=== PATIENT | female | born 1990 | race Two or more races ===

== ENCOUNTER 2017-04-23 19:27 | Emergency (ER) | payer MEDICAID ==
[~2017-04-23] VITALS: Ht 165.1 cm; Wt 71.3 kg
[~2017-04-23 19:27] MED LIST: CYCL-1 PO; NORCO10T PO; PHEN-716 PO
[2017-04-23] MEDS ORDERED: PENI-88 PO (21:27)
[2017-04-23 21:38] VITALS: BP 130/53
== END 2017-04-23 21:40 | disposition home or self-care (01) ==
LOC: ER 19:27
DX: O99.513 Diseases of the respiratory system complicating pregnancy, third trimester (principal); J06.9 Acute upper respiratory infection, unspecified; Q89.01 Asplenia (congenital); Z3A.34 34 weeks gestation of pregnancy; Z90.49 Acquired absence of other specified parts of digestive tract; Z60.2 Problems related to living alone; Z88.5 Allergy status to narcotic agent; Z79.899 Other long term (current) drug therapy
CPT/HCPCS: 36415; 99283; 99284

== ENCOUNTER 2019-09-02 06:17 | Emergency (ER) | payer MEDICAID ==
[~2019-09-02] VITALS: Ht 165.1 cm; Wt 59.1 kg
[~2019-09-02 06:17] MED LIST changes: +HYDR-4383 PO; +IBUP-1985 PO
[2019-09-02] MEDS ORDERED: ondansetron/PF 4mg/2ml inj IV ONE (07:00)
[2019-09-02] MEDS ORDERED: fentaNYL/PF 50MCG/1 ML 2ML syringe IV ONE (07:00)
[2019-09-02] MEDS ORDERED: normal saline 1000ML IV soln IV ONE ×2 (07:00→11:45)
[2019-09-02 07:14] LABS: MEAN CORPUSCULAR VOLUME 105.2 FL (78-98)
[2019-09-02 07:19] LABS: HEMATOCRIT 37.4 % (35.0-45.0); MEAN CORPUSCULAR HEMOGLOBIN 36.5 PG (27.0-31.0); MEAN CORPUSCULAR HGB CONC 34.7 g/dL (33.0-36.5); MEAN PLATELET VOLUME 8.1 FL (7.4-10.4); PLATELET COUNT 788 X10'3 (140-440); RED BLOOD COUNT 3.55 X10'6 (4.20-5.60); RED CELL DISTRIBUTION WIDTH 14.6 % (11.5-14.5)
[2019-09-02 07:22] LABS: WHITE BLOOD COUNT 50.7 X10'3 (4.5-11.0)
[2019-09-02 07:25] LABS: PARTIAL THROMBOPLASTIN TIME 33 SECONDS (22-32)
[2019-09-02] MEDS ORDERED: proCHLORperazine 10 MG/2 ml inj IM ONE (07:25)
--- NOTE | 2019-09-02 07:28 | NUR ---
picc nurse aware of IV access needed. Dr roberts asked for PICC to be placed.
[2019-09-02 07:38] LABS: ALBUMIN 2.8 G/DL (3.4-5.0); ALKALINE PHOSPHATASE 208 IU/L (46-116); ANION GAP 36 (8-16); BILIRUBIN,TOTAL 5.9 MG/DL (0.1-1.0); BLOOD UREA NITROGEN 30 MG/DL (7-18); BUN/CREATININE RATIO 6.4 (6.6-38.0); CALCIUM 6.8 MG/DL (8.5-10.1); CHLORIDE 95 MMOL/L (99-107); CREATININE 4.68 MG/DL (0.40-0.90); SODIUM 143 MMOL/L (135-145); eGFR 11 ML/MIN
[2019-09-02 07:40] LABS: GLUCOSE 28 MG/DL (70-104)
[2019-09-02] MEDS ORDERED: dextrose 50%-water 50ml dispensing syringe IV ONE (07:45)
[2019-09-02] MEDS ORDERED: methylPREDNISolone sod succ 125mg/2ml vial IV ONE (07:50)
[2019-09-02 07:52] LABS: RETICULOCYTE % (AUTO) 2.8 % (0.5-1.5)
[2019-09-02 07:53] LABS: ABSOLUTE RETICS # 100100 /CUMM (23000-93000)
[2019-09-02 07:56] LABS: PLATELET ESTIMATE INCREASED; TOTAL CELLS COUNTED 100
[2019-09-02 07:57] LABS: LARGE PLATELETS FEW
[2019-09-02 07:58] LABS: ALANINE AMINOTRANSFERASE 1287 U/L (12-78); ALBUMIN/GLOBULIN RATIO 0.7 (1.1-1.5); TOTAL PROTEIN 6.8 G/DL (6.4-8.2)
[2019-09-02 08:03] LABS: POTASSIUM 2.4 MMOL/L (3.5-5.1); TOTAL CARBON DIOXIDE 12.1 MMOL/L (24-32)
--- NOTE | 2019-09-02 08:08 | NUR ---
notified dr roberts of pt condition. ordered to set up for a central line placement.
--- NOTE | 2019-09-02 08:10 | NUR ---
dr roberts at bedside to eval pt. pt refuses fentanyl at this time and due to pt condition and allergies dr perry stated we are limited to wha types of pain meds we can give. pt asked for dilaudid. dr roberts stated no dilaudid for pain conrtol.
[2019-09-02 08:33] LABS: ASPARTATE AMINO TRANSFERASE 2744 U/L (10-37)
[2019-09-02 08:34] LABS: URINE HCG NEGATIVE (NEG)
--- NOTE | 2019-09-02 08:41 | NUR ---
Dr Perez ok to give juice to pt. hold central line for now since we have 2 working PIV at this time.
[2019-09-02 08:47] LABS: UA COLLECTION TYPE STRAIGHT CATH
[2019-09-02 08:48] LABS: BACTERIA,URINE 4+ /HPF (Neg); RBC,URINE 20-50 /HPF (0-2); SQUAMOUS EPITHELIAL CELL,UR FEW /LPF (FEW); WBC,URINE TNTC /HPF (0-4)
[2019-09-02 08:49] LABS: TRANSITIONAL EPI CELLS,URINE FEW /HPF
[2019-09-02 08:50] LABS: WBC CLUMPS,URINE FEW /HPF (NEGATIVE)
[2019-09-02 09:04] LABS: AMYLASE 59 U/L (25-115); CREATINE KINASE 139 U/L (26-192); LIPASE 185 U/L (73-393); MAGNESIUM 1.5 MG/DL (1.5-2.4)
[2019-09-02] MEDS ORDERED: piperacillin/tazo 3.375gm/50ml 50 ML IV ONE (09:15)
[2019-09-02 09:19] LABS: LACTATE DEHYDROGENASE 2545 U/L (81-234)
[2019-09-02] MEDS ORDERED: pantoprazole IV 80 MG in normal saline 100ml IV soln 100 ML IV ONE ×4 (10:20)
[2019-09-02] MEDS ORDERED: vancomycin/NS 1 GM ADD-VANTAGE 250 ML IV ONE (10:20)
--- NOTE | 2019-09-02 10:27 | NUR ---
spoke with dr roberts regarding pt bp. ordered additional 1L ns.
[2019-09-02] MEDS ORDERED: normal saline 1000ml 1,000 ML IV ONE ×2 (10:30→11:35)
[2019-09-02] MEDS ORDERED: pantoprazole 40MG/NS 100ML BAG 100 ML IV SCH (10:30)
[2019-09-02] MEDS ORDERED: pantoprazole 40MG/NS 100ML BAG 100 ML IV ONE (10:30)
--- NOTE | 2019-09-02 11:16 | NUR ---
[facility] g[facility] [place] [phone] ok to give information per pt.
[2019-09-02 11:17] LABS: ETHANOL < 0.010 GM/DL (0.0-0.010)
[2019-09-02 11:24] LABS: URINE AMPHETAMINE SCREEN POSITIVE (Neg); URINE BARBITUATE SCREEN NEGATIVE (Neg); URINE BENZODIAZEPINES SCREEN NEGATIVE (Neg); URINE CANNABINOID SCREEN NEGATIVE (Neg); URINE COCAINE SCREEN POSITIVE (Neg); URINE METHADONE SCREEN NEGATIVE (Neg); URINE OPIATE SCREEN POSITIVE (Neg); URINE PHENCYCLIDINE SCREEN NEGATIVE (Neg)
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
--- NOTE | 2019-09-02 11:53 | NUR ---
dr roberts at bedside to place central line
[2019-09-02] MEDS ORDERED: hydrocortisone sod succ/PF 100mg/2ml inj. IV SCH (12:15)
[2019-09-02] MEDS ORDERED: potassium Cl 10 mEq/100mL bag IV ONE (13:05)
[2019-09-02] MEDS ORDERED: sodium bicarbonate (8.4%) inj. 150 MEQ in dextrose 5%-water 1,000 ML IV SCH (14:20)
--- NOTE | 2019-09-02 14:22 | NUR ---
ATTEMPTED TO CALL REPORT, SPOKE WITH ZAYRA COORDINATOR [facility]. STATED NO NURSE AVAILABLE UNTIL 1500. WILL CALL REPORT THEN.
[2019-09-02 14:43] VITALS: BP 93/51
[2019-09-02 14:52] LABS: ANION GAP 27 (8-16); BLOOD UREA NITROGEN 28 MG/DL (7-18); BUN/CREATININE RATIO 6.6 (6.6-38.0); CHLORIDE 103 MMOL/L (99-107); CREATININE 4.27 MG/DL (0.40-0.90); GLUCOSE 92 MG/DL (70-104); POTASSIUM 3.5 MMOL/L (3.5-5.1); SODIUM 142 MMOL/L (135-145); eGFR 13 ML/MIN
[2019-09-02 14:55] LABS: CALCIUM 5.5 MG/DL (8.5-10.1); TOTAL CARBON DIOXIDE 11.9 MMOL/L (24-32)
--- NOTE | 2019-09-06 08:40 | NUR ---
called [facility] in [facility], spoke to Estelita HERNADEZ. informed her that the pt. was positive for chlamydia and negative for gonorrhea
== END 2019-09-02 15:28 | disposition short-term general hospital (02) ==
LOC: ER 06:18
DX: N17.9 Acute kidney failure, unspecified (principal); K72.00 Acute and subacute hepatic failure without coma; I95.9 Hypotension, unspecified; R11.2 Nausea with vomiting, unspecified; R06.02 Shortness of breath; R10.12 Left upper quadrant pain; Z87.440 Personal history of urinary (tract) infections; Z90.49 Acquired absence of other specified parts of digestive tract; Z98.890 Other specified postprocedural states; Z88.5 Allergy status to narcotic agent; Z79.899 Other long term (current) drug therapy
CPT/HCPCS: 36415; 36556; 71045; 74176; 76700; 76937; 80048; 80053; 80305; 80320; 81001; 81025; 82150; 82550; 82800; 82948; 83605; 83615; 83690; 83735; 83874; 84145; 84484; 85025; 85045; 85610; 85730; 87040; 87077; 87186; 87491; 87591; 93005; 96361; 96365; 96366; 96367; 96372; 96375; 99291; 99292; C9113; J0780; J1720; J2405; J2543; J2930; J3370; J3480; J7030

== ENCOUNTER 2019-09-15 14:16 | Emergency (ER) | payer MEDICAID ==
[~2019-09-15] VITALS: Ht 165.1 cm; Wt 56.8 kg
[2019-09-15 14:57] LABS: BASOPHILS # (AUTO) 0.1 X10'3 (0-0.2); EOSINOPHILS % (AUTO) 0.2 % (0-6); MONOCYTES # (AUTO) 1.6 X10'3 (0-0.9); WHITE BLOOD COUNT 15.8 X10'3 (4.5-11.0)
[2019-09-15 14:59] LABS: BASOPHILS % (AUTO) 0.6 % (0-1); HEMATOCRIT 31.3 % (35.0-45.0); HEMOGLOBIN 10.1 g/dl (12.0-16.0); LYMPHOCYTES # (AUTO) 2.1 X10'3 (1.1-4.8); LYMPHOCYTES % (AUTO) 13.5 % (21-51); MEAN CORPUSCULAR HEMOGLOBIN 35.4 PG (27.0-31.0); MEAN CORPUSCULAR HGB CONC 32.4 g/dL (33.0-36.5); MEAN CORPUSCULAR VOLUME 109.4 FL (78-98); MEAN PLATELET VOLUME 9.1 FL (7.4-10.4); MONOCYTES % (AUTO) 9.9 % (2-12); NEUTROPHILS % (AUTO) 75.8 % (42-75); PLATELET COUNT 789 X10'3 (140-440); RED BLOOD COUNT 2.86 X10'6 (4.20-5.60); RED CELL DISTRIBUTION WIDTH 14.7 % (11.5-14.5)
[2019-09-15 15:11] LABS: ALANINE AMINOTRANSFERASE 110 U/L (12-78); ALBUMIN 3.2 G/DL (3.4-5.0); ALKALINE PHOSPHATASE 325 IU/L (46-116); ANION GAP 13 (8-16); ASPARTATE AMINO TRANSFERASE 102 U/L (10-37); BILIRUBIN,TOTAL 5.1 MG/DL (0.1-1.0); BLOOD UREA NITROGEN 11 MG/DL (7-18); BUN/CREATININE RATIO 7.4 (6.6-38.0); CHLORIDE 102 MMOL/L (99-107); CREATININE 1.48 MG/DL (0.40-0.90); GLUCOSE 118 MG/DL (70-104); LIPASE 356 U/L (73-393); POTASSIUM 5.3 MMOL/L (3.5-5.1); SODIUM 136 MMOL/L (135-145); eGFR 43 ML/MIN
[2019-09-15 15:13] LABS: ALBUMIN/GLOBULIN RATIO 0.6 (1.1-1.5); TOTAL PROTEIN 8.8 G/DL (6.4-8.2)
[2019-09-15 15:47] LABS: LARGE PLATELETS MODERATE; PLATELET ESTIMATE INCREASED
[2019-09-15] MEDS ORDERED: ondansetron/PF 4mg/2ml inj IV ONE (16:05)
[2019-09-15] MEDS ORDERED: normal saline 1000ML IV soln IV ONE (16:05)
--- NOTE | 2019-09-15 17:29 | NUR ---
unable to start iv on pt tried twice ,notified rn linus start iv ,tried 4 time unsuccessful.provider jelly aware ,new orders not to start iv and will order oral zofran.
[2019-09-15] MEDS ORDERED: ONDA4TAB6 PO (17:36)
[2019-09-15] MEDS ORDERED: ondansetron 4mg rapidly disintigrating tab PO ONE (17:40)
[2019-09-15 18:19] VITALS: BP 111/73
== END 2019-09-15 18:23 | disposition home or self-care (01) ==
LOC: ER 14:17
DX: E87.5 Hyperkalemia (principal); K29.70 Gastritis, unspecified, without bleeding; Z90.49 Acquired absence of other specified parts of digestive tract; Z98.890 Other specified postprocedural states; Z88.5 Allergy status to narcotic agent; Z79.899 Other long term (current) drug therapy
CPT/HCPCS: 36415; 80053; 83605; 83690; 84145; 85025; 93005; 99284

== ENCOUNTER 2020-07-10 02:26 | Emergency (ER) | payer MEDICAID ==
[~2020-07-10 02:26] MED LIST changes: +ONDA4TAB6 PO
== END 2020-07-10 04:56 | disposition left against medical advice (07) ==
LOC: ER 02:26
DX: Z00.00 Encounter for general adult medical examination without abnormal findings (principal); Z53.21 Procedure and treatment not carried out due to patient leaving prior to being seen by health care provider

== ENCOUNTER 2021-02-07 21:48 | Emergency (ER) | payer MEDICAID ==
[~2021-02-07] VITALS: Ht 167.6 cm; Wt 61.4 kg
[2021-02-07] MEDS ORDERED: NO HOME MEDS (22:56)
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
[2021-02-07] MEDS ORDERED: diazepam inj 5 MG/ML inj. IM ONE (23:35)
[2021-02-07] MEDS ORDERED: ibuprofen tablet 400 MG TABLET PO ONE (23:35)
[2021-02-07 23:40] LABS: ALANINE AMINOTRANSFERASE 90 U/L (12-78); ALBUMIN 4.1 G/DL (3.4-5.0); ALKALINE PHOSPHATASE 95 IU/L (46-116); ANION GAP 17 (8-16); ASPARTATE AMINO TRANSFERASE 115 U/L (10-37); BILIRUBIN,TOTAL 1.4 MG/DL (0.1-1.0); BLOOD UREA NITROGEN 12 MG/DL (7-18); BUN/CREATININE RATIO 15.4 (6.6-38.0); CALCIUM 8.6 MG/DL (8.5-10.1); CHLORIDE 107 MMOL/L (99-107); CREATININE 0.78 MG/DL (0.40-0.90); GLUCOSE 93 MG/DL (70-104); POTASSIUM 3.1 MMOL/L (3.5-5.1); SODIUM 147 MMOL/L (135-145); TOTAL CARBON DIOXIDE 23.2 MMOL/L (24-32); TOTAL PROTEIN 8.3 G/DL (6.4-8.2); eGFR 88 ML/MIN
[2021-02-07] MEDS ORDERED: MIDAZolam 5mg/ml 2ml vial IM ONE (23:40)
[2021-02-07 23:49] LABS: ETHANOL 0.193 GM/DL (0.0-0.010)
--- NOTE | 2021-02-07 23:50 | NUR ---
security called to get blood and change patient into gown. grisel outside of door. patient left room after secutiry left and tried to leave, security escorted her back to her room. Versed was ordered and patient gladly let me give it to her. Asked patient if she could provide urine sample she refused, will keep trying. patient is now resting in her bed with blanket over her head.
[2021-02-08 02:07] LABS: BASOPHILS # (AUTO) 0.1 X10'3 (0-0.2); BASOPHILS % (AUTO) 0.8 % (0-1); EOSINOPHILS # (AUTO) 0.1 X10'3 (0-0.9); EOSINOPHILS % (AUTO) 0.6 % (0-6); LYMPHOCYTES # (AUTO) 1.7 X10'3 (1.1-4.8); LYMPHOCYTES % (AUTO) 15.1 % (21-51); MONOCYTES # (AUTO) 1.4 X10'3 (0-0.9); MONOCYTES % (AUTO) 12.4 % (2-12); NEUTROPHILS # (AUTO) 7.8 X10'3 (1.8-7.7); NEUTROPHILS % (AUTO) 71.1 % (42-75)
[2021-02-08 03:15] LABS: HEMATOCRIT 33.4 % (35.0-45.0); HEMOGLOBIN 12.3 g/dl (12.0-16.0); MEAN CORPUSCULAR HEMOGLOBIN 36.1 PG (27.0-31.0)
[2021-02-08 03:16] LABS: MEAN CORPUSCULAR HGB CONC 36.9 g/dL (33.0-36.5); MEAN PLATELET VOLUME 8.6 FL (7.4-10.4); PLATELET COUNT 446 X10'3 (140-440); RED CELL DISTRIBUTION WIDTH 13.9 % (11.5-14.5)
[2021-02-08 04:18] LABS: NUCLEATED RED BLOOD CELLS 1 /100WBC (0-0); TOTAL CELLS COUNTED 100
[2021-02-08 04:19] LABS: BURR CELLS FEW; PLATELET ESTIMATE NORMAL; SPHEROCYTES FEW
--- NOTE | 2021-02-08 05:16 | NUR ---
patient let me covid swab her but refused vitals ( stated that we didnt need to know).
[2021-02-08] MEDS ORDERED: potassium Cl 20 mEq SR tablet PO STA (05:21)
[2021-02-08] MEDS ORDERED: MIDAZolam 5mg/ml 2ml vial IM ONE (05:35)
[2021-02-08 05:58] LABS: URINE HCG NEGATIVE (NEG)
[2021-02-08 06:04] LABS: URINE AMPHETAMINE SCREEN NEGATIVE (Neg); URINE BARBITUATE SCREEN NEGATIVE (Neg); URINE BENZODIAZEPINES SCREEN POSITIVE (Neg); URINE CANNABINOID SCREEN NEGATIVE (Neg); URINE COCAINE SCREEN POSITIVE (Neg); URINE METHADONE SCREEN NEGATIVE (Neg); URINE OPIATE SCREEN NEGATIVE (Neg); URINE PHENCYCLIDINE SCREEN NEGATIVE (Neg)
--- NOTE | 2021-02-08 09:00 | NUR ---
Pt ate breakfast and did not have AM meds. She was pleasant, answered questions appropriately and requested water and returned to sleep.
[2021-02-08] MEDS ORDERED: acetaminophen 325mg tablet PO ONE (11:30)
--- NOTE | 2021-02-08 12:13 | NUR ---
Received Pt from main ER to [facility]. Pt went into bed 25 and fell asleep.
--- NOTE | 2021-02-08 13:30 | NUR ---
Pt c/o leg pain and was given Tylenol after getting order from .
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
[2021-02-08] MEDS ORDERED: acetaminophen 325mg tablet PO PRN (16:30)
[2021-02-08] MEDS: diphenhydrAMINE 25mg capsule PO PRN ×2 (16:48→20:44)
[2021-02-08] MEDS: ibuprofen tablet 400 MG TABLET PO PRN ×2 (16:48→20:44)
--- NOTE | 2021-02-08 17:15 | NUR ---
Pt makes many requests for snacks, phone pillows. Pt given motrin or pain and benadryl for anxiety per md.
--- NOTE | 2021-02-08 19:00 | NUR ---
One to one with the patient is alert, oriented and cooperative with the evening assessment. She denies auditory or visual hallucinations at this time but stated she did have them yesterday. She denies being sucidal. She denies drug use. She denies etoh withdrawals. She denies thoughts to harm others. She has not had any agitated or threatening behaviors.
--- NOTE | 2021-02-08 20:18 | NUR ---
Nurse to nurse with Christa HERNADEZ at [facility], [place].
--- NOTE | 2021-02-08 22:21 | NUR ---
The patient had difficulty falling asleep. She has very poor coping skills. She is medication focused.
[2021-02-08] MEDS ORDERED: LORazepam 1 MG tablet PO ONE (23:05)
--- NOTE | 2021-02-09 00:53 | NUR ---
The patient appears to be sleeping
--- NOTE | 2021-02-09 01:54 | NUR ---
The patient appears to be sleeping
--- NOTE | 2021-02-09 03:55 | NUR ---
The patient is awake and resting on her bed
--- NOTE | 2021-02-09 05:27 | NUR ---
The patient appears to be sleeping currently
[2021-02-09 05:53] VITALS: BP 138/97
--- NOTE | 2021-02-09 07:00 | NUR ---
Pt received asleep in bed without complaints.
[2021-02-09] MEDS: diphenhydrAMINE 25mg capsule PO PRN (08:14)
== END 2021-02-09 10:38 ==
LOC: ER 21:48
DX: F10.929 Alcohol use, unspecified with intoxication, unspecified (principal); R74.01 Elevation of levels of liver transaminase levels; Z20.822 Contact with and (suspected) exposure to COVID-19
CPT/HCPCS: 36415; 80053; 80305; 80320; 81025; 84443; 85007; 85025; 85610; 87635; 96372; 99285; C9803; J2250; Q0163

== ENCOUNTER 2021-06-13 22:48 | Emergency (ER) | payer MEDICAID ==
[~2021-06-13] VITALS: Ht 165.1 cm; Wt 63.6 kg
[~2021-06-13 22:48] MED LIST changes: -CYCL-1 PO; -HYDR-4383 PO; -IBUP-1985 PO; +NO HOME MEDS; -NORCO10T PO; -ONDA4TAB6 PO; -PHEN-716 PO
[2021-06-13 22:56] VITALS: BP 131/91
[2021-06-13 23:27] LABS: CLARITY,URINE CLEAR (Clear); COLOR,URINE YELLOW (Yellow); GLUCOSE, URINE NEGATIVE (Neg); KETONES,URINE NEGATIVE (Neg); LEUKOCYTE ESTERASE ,URINE NEGATIVE (Neg); NITRITES, URINE NEGATIVE (Neg); OCCULT BLOOD,URINE NEGATIVE (Neg); PH,URINE 6.5 (4.8-8.0); PROTEIN,URINE NEGATIVE (Neg); UROBILINOGEN,URINE 0.2 E.U/dL (0.2-1.0)
[2021-06-13 23:28] LABS: BASOPHILS # (AUTO) 0.1 X10'3 (0-0.2); BASOPHILS % (AUTO) 0.7 % (0-1); EOSINOPHILS # (AUTO) 0.2 X10'3 (0-0.9); EOSINOPHILS % (AUTO) 1.8 % (0-6); HEMATOCRIT 34.8 % (35.0-45.0); HEMOGLOBIN 12.6 g/dl (12.0-16.0); LYMPHOCYTES # (AUTO) 2.4 X10'3 (1.1-4.8); LYMPHOCYTES % (AUTO) 22.9 % (21-51); MEAN CORPUSCULAR HEMOGLOBIN 34.8 PG (27.0-31.0); MEAN CORPUSCULAR VOLUME 96.6 FL (78-98); MEAN PLATELET VOLUME 7.2 FL (7.4-10.4); MONOCYTES # (AUTO) 1.3 X10'3 (0-0.9); MONOCYTES % (AUTO) 11.7 % (2-12); NEUTROPHILS # (AUTO) 6.7 X10'3 (1.8-7.7); NEUTROPHILS % (AUTO) 62.9 % (42-75); PLATELET COUNT 586 X10'3 (140-440); RED BLOOD COUNT 3.61 X10'6 (4.20-5.60); RED CELL DISTRIBUTION WIDTH 14.3 % (11.5-14.5); WHITE BLOOD COUNT 10.7 X10'3 (4.5-11.0)
[2021-06-13 23:28] LABS: URINE HCG NEGATIVE (NEG)
[2021-06-13 23:31] LABS: UA COLLECTION TYPE NON-SPECIFIED
[2021-06-13 23:43] LABS: ALANINE AMINOTRANSFERASE 19 U/L (12-78); ALBUMIN 3.3 G/DL (3.4-5.0); ALBUMIN/GLOBULIN RATIO 0.8 (1.1-1.5); ALKALINE PHOSPHATASE 74 IU/L (46-116); ANION GAP 13 (8-16); ASPARTATE AMINO TRANSFERASE 15 U/L (10-37); BILIRUBIN,TOTAL 0.4 MG/DL (0.1-1.0); BLOOD UREA NITROGEN 15 MG/DL (7-18); BUN/CREATININE RATIO 23.4 (6.6-38.0); CALCIUM 8.4 MG/DL (8.5-10.1); CHLORIDE 105 MMOL/L (99-107); CREATININE 0.64 MG/DL (0.40-0.90); GLUCOSE 95 MG/DL (70-104); LIPASE 81 U/L (73-393); POTASSIUM 3.4 MMOL/L (3.5-5.1); SODIUM 143 MMOL/L (135-145); TOTAL CARBON DIOXIDE 25.1 MMOL/L (24-32); TOTAL PROTEIN 7.5 G/DL (6.4-8.2); eGFR > 90 ML/MIN
[2021-06-14 01:24] LABS: PLATELET ESTIMATE INCREASED; SPHEROCYTES FEW
[2021-06-14 01:25] LABS: BURR CELLS FEW; LARGE PLATELETS FEW
== END 2021-06-14 00:06 | disposition left against medical advice (07) ==
LOC: ER 22:49
DX: R10.9 Unspecified abdominal pain (principal); Z53.21 Procedure and treatment not carried out due to patient leaving prior to being seen by health care provider
CPT/HCPCS: 36415; 80053; 81003; 81025; 83690; 85008; 85025

== ENCOUNTER 2021-07-27 01:30 | Emergency (ER) | payer MEDICAID ==
[~2021-07-27] VITALS: Ht 170.2 cm; Wt 63.6 kg
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
--- NOTE | 2021-07-27 01:52 | NUR ---
PT to CT
--- NOTE | 2021-07-27 01:59 | NUR ---
Pt back from CT. Xray at bedside.
[2021-07-27] MEDS ORDERED: morphine 4 MG/ML inj SYRINge IV ONE ×2 (02:05→06:15)
[2021-07-27] MEDS ORDERED: ondansetron/PF 4mg/2ml inj IV ONE ×2 (02:05→06:15)
[2021-07-27 02:12] LABS: ALANINE AMINOTRANSFERASE 26 U/L (12-78); ALBUMIN 3.6 G/DL (3.4-5.0); ALBUMIN/GLOBULIN RATIO 0.9 (1.1-1.5); ALKALINE PHOSPHATASE 91 IU/L (46-116); ANION GAP 13 (8-16); ASPARTATE AMINO TRANSFERASE 27 U/L (10-37); BILIRUBIN,TOTAL 0.4 MG/DL (0.1-1.0); BLOOD UREA NITROGEN 13 MG/DL (7-18); BUN/CREATININE RATIO 12.9 (6.6-38.0); CALCIUM 8.2 MG/DL (8.5-10.1); CHLORIDE 109 MMOL/L (99-107); CREATININE 1.01 MG/DL (0.40-0.90); GLUCOSE 90 MG/DL (70-104); SODIUM 145 MMOL/L (135-145); TOTAL PROTEIN 7.6 G/DL (6.4-8.2); eGFR 65 ML/MIN
[2021-07-27 02:13] LABS: POTASSIUM 2.4 MMOL/L (3.5-5.1)
--- NOTE | 2021-07-27 02:15 | NUR ---
Critical potassium of 2.4 reported to Ji ELIZONDO
[2021-07-27 02:30] LABS: HCG SERUM QL NEGATIVE
[2021-07-27] MEDS ORDERED: potassium Cl 20 mEq SR tablet PO STA ×2 (02:34→07:04)
[2021-07-27] MEDS ORDERED: potassium chloride 10mEq ER tablet PO SCH (02:35)
--- NOTE | 2021-07-27 03:00 | NUR ---
FLORA (BROTHER) [phone] PLEASE CALL TO PICK PT UP WHEN READY
[2021-07-27 03:11] LABS: BASOPHILS # (AUTO) 0.1 X10'3 (0-0.2); BASOPHILS % (AUTO) 1.1 % (0-1); EOSINOPHILS # (AUTO) 0.5 X10'3 (0-0.9); EOSINOPHILS % (AUTO) 4.1 % (0-6); HEMATOCRIT 37.6 % (35.0-45.0); HEMOGLOBIN 13.4 g/dl (12.0-16.0); LYMPHOCYTES # (AUTO) 3.3 X10'3 (1.1-4.8); LYMPHOCYTES % (AUTO) 25.9 % (21-51); MEAN CORPUSCULAR HEMOGLOBIN 35.1 PG (27.0-31.0); MEAN CORPUSCULAR HGB CONC 35.7 g/dL (33.0-36.5); MEAN CORPUSCULAR VOLUME 98.3 FL (78-98); MEAN PLATELET VOLUME 7.8 FL (7.4-10.4); MONOCYTES # (AUTO) 1.3 X10'3 (0-0.9); MONOCYTES % (AUTO) 9.9 % (2-12); NEUTROPHILS # (AUTO) 7.5 X10'3 (1.8-7.7); PLATELET COUNT 567 X10'3 (140-440); RED BLOOD COUNT 3.83 X10'6 (4.20-5.60); RED CELL DISTRIBUTION WIDTH 13.7 % (11.5-14.5); WHITE BLOOD COUNT 12.8 X10'3 (4.5-11.0)
--- NOTE | 2021-07-27 05:06 | NUR ---
Pt asleep in bed
--- NOTE | 2021-07-27 07:00 | NUR ---
CLARIFIED WITH DR KAYE THAT PT K+ IS 2.4 AND PT RECEIVED POTASSIUM 40 MEQ PO TAB AND SHE IS D/C READY NOW . PER MD VERBAL ORDER FOR POTASSIUM 40 MEQ TAB PO ONCE.
[2021-07-27] MEDS ORDERED: magnesium oxide 400mg tablet PO ONE (08:00)
[2021-07-27] MEDS ORDERED: HYDR-3965 PO ×3 (08:01→21:15)
--- NOTE | 2021-07-27 08:22 | NUR ---
PER DR AVILA NO NEED OF LAB ON PT PT PASSED THE GAIT TEST .WILL FOLLOW THE ORDERS.
[2021-07-27 08:26] VITALS: BP 133/97
[2021-07-27] MEDS ORDERED: HYDROcodone/acetaminophen 5mg/325mg tablet PO ONE (08:35)
[2021-07-27] MEDS ORDERED: LIDOcaine 1% W/epiNEPHrine 1:100,000 20ml vial ONE (13:00)
== END 2021-07-27 08:49 | disposition home or self-care (01) ==
LOC: EEVIPCON 01:30 → ER 01:30
DX: S01.111A Laceration without foreign body of right eyelid and periocular area, initial encounter (principal); S00.12XA Contusion of left eyelid and periocular area, initial encounter; S00.11XA Contusion of right eyelid and periocular area, initial encounter; R55 Syncope and collapse; Z90.49 Acquired absence of other specified parts of digestive tract; Z87.440 Personal history of urinary (tract) infections; Z72.89 Other problems related to lifestyle; Y04.2XXA Assault by strike against or bumped into by another person, initial encounter; Y93.89 Activity, other specified; Y92.511 Restaurant or cafe as the place of occurrence of the external cause; Y99.8 Other external cause status
CPT/HCPCS: 36415; 70450; 70486; 71045; 72125; 80053; 84703; 85025; 96374; 96375; 96376; 99285; J2270; J2405; J3490

== ENCOUNTER 2021-10-21 13:32 | Emergency (ER) | payer MEDICAID ==
[~2021-10-21] VITALS: Ht 165.1 cm; Wt 63.6 kg
[2021-10-21 13:39] VITALS: BP 149/101
[2021-10-21 14:41] LABS: ALANINE AMINOTRANSFERASE 101 U/L (12-78); ALBUMIN 3.6 G/DL (3.4-5.0); ALBUMIN/GLOBULIN RATIO 0.9 (1.1-1.5); ALKALINE PHOSPHATASE 126 IU/L (46-116); ANION GAP 9 (8-16); ASPARTATE AMINO TRANSFERASE 126 U/L (10-37); BILIRUBIN,TOTAL 1.7 MG/DL (0.1-1.0); BLOOD UREA NITROGEN 14 MG/DL (7-18); BUN/CREATININE RATIO 20.3 (6.6-38.0); CALCIUM 8.2 MG/DL (8.5-10.1); CHLORIDE 105 MMOL/L (99-107); CREATININE 0.69 MG/DL (0.40-0.90); GLUCOSE 98 MG/DL (70-104); LIPASE 129 U/L (73-393); SODIUM 142 MMOL/L (135-145); TOTAL PROTEIN 7.7 G/DL (6.4-8.2); eGFR > 90 ML/MIN
[2021-10-21 14:43] LABS: POTASSIUM 2.9 MMOL/L (3.5-5.1)
--- NOTE | 2021-10-21 14:43 | NUR ---
Critical lab results Potassium 2.9, provider aware.
--- NOTE | 2021-10-21 14:52 | NUR ---
Attempted to call patient back to available room. Patient was not in lobby. Attempted to call listed number for patient at which the listed number was not a working number. Called mothers number at which went straight to voicemail.
[2021-10-21 14:55] LABS: MAGNESIUM 1.6 MG/DL (1.5-2.4)
[2021-10-21 15:05] LABS: BASOPHILS # (AUTO) 0.1 X10'3 (0-0.2); BASOPHILS % (AUTO) 0.9 % (0-1); EOSINOPHILS # (AUTO) 0.1 X10'3 (0-0.9); EOSINOPHILS % (AUTO) 0.6 % (0-6); HEMATOCRIT 35.7 % (35.0-45.0); HEMOGLOBIN 13.4 g/dl (12.0-16.0); LYMPHOCYTES # (AUTO) 0.7 X10'3 (1.1-4.8); LYMPHOCYTES % (AUTO) 6.3 % (21-51); MEAN CORPUSCULAR HEMOGLOBIN 36.5 PG (27.0-31.0); MEAN CORPUSCULAR HGB CONC 37.5 g/dL (33.0-36.5); MEAN CORPUSCULAR VOLUME 97.2 FL (78-98); MEAN PLATELET VOLUME 8.8 FL (7.4-10.4); MONOCYTES # (AUTO) 0.9 X10'3 (0-0.9); MONOCYTES % (AUTO) 8.1 % (2-12); NEUTROPHILS # (AUTO) 9.3 X10'3 (1.8-7.7); NEUTROPHILS % (AUTO) 84.1 % (42-75); PLATELET COUNT 468 X10'3 (140-440); RED BLOOD COUNT 3.67 X10'6 (4.20-5.60); RED CELL DISTRIBUTION WIDTH 13.8 % (11.5-14.5)
[2021-10-21 15:07] LABS: LARGE PLATELETS MODERATE; PLATELET ESTIMATE INCREASED
[2021-10-21 15:08] LABS: SPHEROCYTES 2+
== END 2021-10-21 15:21 | disposition left against medical advice (07) ==
LOC: ER 13:33
DX: R11.10 Vomiting, unspecified (principal); Z20.822 Contact with and (suspected) exposure to COVID-19; Z53.21 Procedure and treatment not carried out due to patient leaving prior to being seen by health care provider
CPT/HCPCS: 36415; 80053; 83690; 83735; 85008; 85025; 87635; C9803

== ENCOUNTER 2021-11-29 19:55 | Emergency (ER) | payer MEDICAID ==
[~2021-11-29] VITALS: Ht 165.1 cm; Wt 55.0 kg
[2021-11-29 20:51] VITALS: BP 135/95
== END 2021-11-29 20:53 ==
LOC: ER 19:55
DX: H57.11 Ocular pain, right eye (principal); H57.89 Other specified disorders of eye and adnexa; V98.8XXA Other specified transport accidents, initial encounter; Y93.89 Activity, other specified; Y92.89 Other specified places as the place of occurrence of the external cause; Y99.8 Other external cause status
CPT/HCPCS: 99283

== ENCOUNTER 2022-03-03 22:18 | Emergency (ER) | payer MEDICAID ==
[~2022-03-03] VITALS: Ht 165.1 cm; Wt 63.6 kg
[~2022-03-03 22:18] MED LIST changes: -NO HOME MEDS; +OLAN5TAB75 PO; +TRAZ-251 PO
[2022-03-04] MEDS ORDERED: cloNIDine 0.1 mg tablet PO STA (04:04)
[2022-03-04] MEDS ORDERED: LORazepam 1 MG tablet PO STA (04:04)
[2022-03-04] MEDS ORDERED: penicillin V potassium 500mg tablet PO ONE (04:40)
[2022-03-04] MEDS ORDERED: PENI250T2 PO (04:55)
[2022-03-04 05:12] VITALS: BP 126/86
== END 2022-03-04 05:14 | disposition home or self-care (01) ==
LOC: ER 22:19
DX: K08.89 Other specified disorders of teeth and supporting structures (principal); I10 Essential (primary) hypertension; M54.9 Dorsalgia, unspecified; R10.9 Unspecified abdominal pain; Z79.899 Other long term (current) drug therapy
CPT/HCPCS: 99284

== ENCOUNTER 2024-09-07 17:50 | Emergency (ER) | payer MEDICAID ==
[~2024-09-07] VITALS: Ht 165.1 cm; Wt 81.0 kg
[2024-09-07 18:07] VITALS: TEMP 97.8
--- NOTE | 2024-09-07 18:25 | Physician Documentation ---
History of Present Illness ~ Chief Complaint: Urinary Symptoms Stated Complaint: BLADDER INFECTION Time Seen by MD: 19:08 Primary Medical Doctor: Lee Ann Source: patient, family, RN/MD HPI Patient is seen today with complaints of suprapubic discomfort and urinary urgency and frequency for seven days. Patient denies any fevers or chills or flank pain. Patient has no other concern or complaint at this time. Patient states he was diagnosed with urinary tract infection over a week ago but was unable to picker and packer the antibiotic. Medication Reconciliation Allergies: Coded Allergies: No Known Allergies (Unverified , 03/03/22) Scheduled Olanzapine (Olanzapine), 1 TAB PO BID Scheduled PRN Trazodone HCl (Trazodone HCl), 50 MG PO HS PRN for Sleep Past Medical History Past Medical History: Hypertension, Liver Failure, *HEMATOLOGY*, Renal Disease, UTI, *INFECTIOUS DZ*, Schizophrenia Past Surgical History: abdominal surgery, cholecystectomy Other Past Surgical History: splenectomy Alcohol Use: Sober Drug Use: none Lives with: Family Lives In: Home Occupation: employed Review of Systems Constitutional: Denies: chills, fever, weakness Eyes: Denies: pain, blurred vision ENT: Denies: ear pain, nose pain, throat pain, mouth pain Respiratory: Denies: cough, shortness of breath Cardiovascular: Denies: chest pain, palpitations Gastrointestinal: Denies: abdominal pain, nausea, vomiting Genitourinary: Denies: burning, dysuria Female Genitalia: Denies: vaginal discharge, pelvic pain Neurological: Denies: headache, dizziness Musculoskeletal: Denies: pain, swelling Integumentary: Denies: rash, lesions Allergic/Immunologic: Denies: hives, itching Hematologic/Lymphatic: Denies: no symptoms reported Psychiatric: Denies: depression, anxiety Physical Exam Vital Signs: Temperature: 97.8, Source: Temporal, Heart Rate: 120, Respiratory Rate: 18, BP: 108/84, Pulse Oximetry: 98, Weight: 81.050 Physical Exam General: Awake and Alert, no acute distress. HEENT: Conjunctiva pink, Sclera clear, Mucus Membranes moist. Neck: Supple without masses and tenderness. Resp: Unlabored. Lungs clear to auscultation bilaterally. Heart: Regular Rate and rhythm, normal S1 and S2 without murmur, rub or gallop. Abdomen: Soft and non tender no organomegaly. On exam patient does not have any CVA tenderness on either side. Extremities: No cyanosis,clubbing or edema. Skin: Warm and Dry. Progress Results/Orders Results/Orders Orders - GERARDO ASHER PAC Cult Urine + [address] (09/07/24 19:12) Completed Orders - GERARDO ASHER PAC Ua W/Microscopic, Cult If Ind (09/07/24 18:50) Ceftriaxone Im Kit W/Lidocaine (Rocephin (09/07/24 19:54) Medications Received in ER Medications (Trade) Dose Ordered Sig/Power Route PRN Reason Start Time Stop Time Status Last Admin Dose Admin (Rocephin 1GM IM kit (w/lidocaine diluent)) 1,000 mg ONCE STAT IM 09/07/24 19:54 09/07/24 20:07 DC 09/07/24 20:13 1,000 MG Vital Signs 09/07/24 09/07/24 09/07/24 18:07 19:27 19:31 Temp 97.8 Pulse 120 110 Resp 18 17 B/P (MAP) 108/84 120/90 (100) Pulse Ox 98 97 O2 Flow Rate 0 Laboratory Tests Test 09/07/24 18:50 Urine Specimen Description Cln catch midstream Urine Color Yellow Urine Clarity Clear Urine pH 7.5 Urine Specific [place] 1.015 Urine Protein Negative Urine Glucose (UA) Negative Urine Ketones Negative Urine Occult Blood Negative Urine Nitrite Negative Urine Bilirubin Negative Urine Urobilinogen 0.2 Urine Leukocyte Esterase Trace H Urine RBC 0-2 Urine WBC 5-10 H Urine Squamous Epithelial Cells Few Urine Bacteria Few Urine Mucus Few Urine Culture Indicated Indicated Volume Urine Centrifuged 10 ml Urine Comment Microbiology Date/Time Source Procedure Growth Status 09/07/24 19:12 Urine Clean Catch Midstream Urine Culture - Preliminary Culture received. Resulted Medical Decision Making Findings Patient is seen today with complaints of suprapubic discomfort and urinary urgency and frequency for seven days. Patient denies any fevers or chills or flank pain. Patient has no other concern or complaint at this time. Patient states he was diagnosed with urinary tract infection over a week ago but was unable to picker and packer the antibiotic. Patient was given Rocephin 1 g in the ED tonight. Prescription of Macrobid 100 mg, one tab twice a day for five days sent to patient pharmacy. Patient will follow up with primary care in 2-5 days if no better as needed sooner. Return to ED with any worsening, concerning or changing symptoms. Departure Disposition: 01 HOME / SELF CARE / HOMELESS Impression: Primary Impression: Urinary tract pain Additional Impression: Acute urinary tract infection Condition: Stable Discharge Instructions: Dysuria Additional Instructions: Patient was given Rocephin 1 g in the ED tonight. Prescription of Macrobid 100 mg, one tab twice a day for five days sent to patient pharmacy. Patient will follow up with primary care in 2-5 days if no better as needed sooner. Return to ED with any worsening, concerning or changing symptoms. Referrals: NO PRIMARY CARE PROVIDER (PCP) Prescriptions Nitrofurantoin Monohyd/M-Cryst (Macrobid 100 mg Capsule) 100 Mg Capsule 1 CAP PO Q12H for 5 Days, #10 CAP 0 Refills Prov: GERARDO ASHER 09/07/24 Additional Comment Medical Screen Exam History: Year old female presents with epigastric pain and dysuria for the past week, patient reports that she was recently hospitalized for mental health disorder and prescribed antibiotics on discharge for UTI though was unable to pick medications up. Patient reports epigastric pain improves when eating ice. Exam: VITALS: Reviewed and as above. GENERAL: Alert, nontoxic appearing, no apparent distress. RESPIRATORY: No increased work of breathing, no respiratory distress, speaking in full clear sentences MSE performed in triage and patient returned to ED lobby by nursing staff to await available ED room The note accurately reflects work and decisions made by me.OLIVERIO Shaffer 09/07/24 18:25 Signature Scribe Signature: No scribe Attestation: No scribe AL MOTT Sep 07, 2024 18:25 GERARDO ASHER Sep 07, 2024 20:25
[2024-09-07 19:00] LABS: BILIRUBIN,URINE NEGATIVE (Neg); CLARITY,URINE CLEAR (Clear); COLOR,URINE YELLOW (Yellow); GLUCOSE, URINE NEGATIVE (Neg); KETONES,URINE NEGATIVE (Neg); LEUKOCYTE ESTERASE ,URINE TRACE (Neg); NITRITES, URINE NEGATIVE (Neg); OCCULT BLOOD,URINE NEGATIVE (Neg); PH,URINE 7.5 (4.8-8.0); PROTEIN,URINE NEGATIVE (Neg); UROBILINOGEN,URINE 0.2 E.U/dL (0.2-1.0)
[2024-09-07 19:04] LABS: UA COLLECTION TYPE CLN CATCH MIDSTREAM
[2024-09-07 19:12] LABS: BACTERIA,URINE FEW /HPF (Neg); MUCUS STRANDS FEW /LPF (Neg); RBC,URINE 0-2 /HPF (0-2); SQUAMOUS EPITHELIAL CELL,UR FEW /LPF (FEW)
[2024-09-07 19:31] VITALS: BP 120/90; PULSE 110; RESP 17; O2SAT 97
[2024-09-07] MEDS: CefTRIAXone 1000mg IM Kit (w/lidocaine diluent) IM STA (20:13)
[2024-09-07] MEDS ORDERED: NITR100C6 PO (20:25)
== END 2024-09-07 20:38 | disposition home or self-care (01) ==
LOC: ER 17:50
DX: N39.0 Urinary tract infection, site not specified (principal); F20.9 Schizophrenia, unspecified; I10 Essential (primary) hypertension; F10.90 Alcohol use, unspecified, uncomplicated; Z90.49 Acquired absence of other specified parts of digestive tract; Y90.9 Presence of alcohol in blood, level not specified
CPT/HCPCS: 81001; 87088; 96372; 99283; J0696

== ENCOUNTER 2024-11-07 08:04 | Emergency (ER) | payer MEDICAID ==
[~2024-11-07] VITALS: Ht 165.1 cm; Wt 84.9 kg
[~2024-11-07 08:04] MED LIST changes: +NITR100C6 PO
[2024-11-07 08:08] VITALS: BP 116/93; PULSE 108; TEMP 97.5; O2SAT 98
--- NOTE | 2024-11-07 08:54 | Physician Documentation ---
HPI ~ General Chief Complaint: Tooth Problem Stated Complaint: TOOTH PAIN Time Seen by MD: 08:53 OK to notify your PCP?: Yes Primary Medical Doctor: no Source: patient, RN/MD, RN notes reviewed, old records Mode of Arrival: POV Exam Limitations: no limitations History of Present Illness HPI Comment This patient has an appointment on the for molar removal of her bottom molars bilaterally. Patient states her cutting her gums it is painful it is inflamed it is tender. She is concerned because it is getting much more painful the last day or so. She has denies any fevers or chills she is tearful she is otherwise at her baseline health has no other medical problems she has just biting her time till the procedure Medication Reconciliation Allergies: Coded Allergies: No Known Allergies (Unverified , 11/07/24) Scheduled Amox Tr/Potassium Clavulanate (Augmentin 875-125 Tablet), 1 TAB PO Q12H Naproxen (Naproxen), 1 TAB PO Q12H Nitrofurantoin Monohyd/M-Cryst (Macrobid 100 mg Capsule), 1 CAP PO Q12H Olanzapine (Olanzapine), 1 TAB PO BID Scheduled PRN Hydrocodone Bit/Acetaminophen 5/325 MG ([place] 5/325 MG), 1-2 TAB PO Q4HPRN PRN for pain Trazodone HCl (Trazodone HCl), 50 MG PO HS PRN for Sleep Past Medical History Past Medical History: Hypertension, Liver Failure, *HEMATOLOGY*, Renal Disease, UTI, *INFECTIOUS DZ*, Schizophrenia Past Surgical History: abdominal surgery, cholecystectomy Other Past Surgical History: splenectomy Last Menstrual Period: Nov 04, 2024 Alcohol Use: Sober Drug Use: methamphetamine, cocaine Lives with: Family Lives In: Home Occupation: employed Review of Systems All Other Systems at this time: Reviewed and Negative Physical Exam Vital Signs: RN Vital Signs have been reviewed: Yes, Temperature: 97.5, Source: Temporal, Heart Rate: 108, Respiratory Rate: 18, BP: 116/93, Pulse Oximetry: 98, Weight: 84.900 Oxygen Flow Rate: 0 Physical Exam General: The patient is well developed, well nourished, nontoxic appearing and is in mild acute distress. Skin: [place], warm and dry with no rashes. HEENT: Head was normocephalic and atraumatic. Eyes - pupils equal, round, reactive to light and accommodation. Extraocular movements were intact. C onjunctivae were nonicteric. The mouth and oropharynx were clear with moist mucous membranes. There were no pharyngeal exudates or erythema. Dental molars in the back shows some erythema redness Neck: Supple and nontender. There was no jugular venous distention, Chest: Clear to auscultation bilaterally without wheezes, rales or rhonchi. Heart: Rate regular and rhythmic. S1, S2. No murmurs. Abdomen: Soft, nontender and nondistended. Positive bowel sounds. Extremities: No cyanosis, clubbing or edema. The patient moves all extremities. Pulses were equal and symmetric. Neurologic: Motor sensory grossly intact Progress Results/Orders Reviewed/noted all lab results: Yes Results/Orders Completed Orders - ARDHA PERRY MD Amox Tr/Potassium Clavulanate (Augmentin (11/07/24 09:00) Hydrocodone/Apap 10/325 ([place] 10/325mg (11/07/24 09:00) Naproxen Tablet (Naprosyn Tablet) (11/07/24 09:00) Medications Received in ER Medications (Trade) Dose Ordered Sig/Power Route PRN Reason Start Time Stop Time Status Last Admin Dose Admin (Augmentin 875-125mg tablet) 1 tab ONCE ONCE PO 11/07/24 09:00 11/07/24 09:01 DC 11/07/24 09:16 1 TAB ([place] 10/325mg tab) 1 tab ONCE ONCE PO 11/07/24 09:00 11/07/24 09:01 DC 11/07/24 09:15 1 TAB (Naprosyn tablet) 500 mg ONCE ONCE PO 11/07/24 09:00 11/07/24 09:01 DC 11/07/24 09:15 500 MG Vital Signs 11/07/24 11/07/24 08:08 09:15 Temp 97.5 Pulse 108 Resp 18 14 B/P (MAP) 116/93 Pulse Ox 98 O2 Flow Rate 0 Re-Evaluation Re-Evaluation : Re-Evaluation: Improved Progress Patient was seen and examined. Patient is given reassurance. Patient was given naproxen [place] and Augmentin. She was encouraged to have a liquid diet until she can be seen by her oral maxillary facial surgeon for her scheduled appointment on the 27th Medical Decision Making Additional info obtained from: old records Differential Dx:Considerations: Include: Alveolar fracture, Alveolar osteitis, ANUG, Facial Cellulitis, Periapical abscess, Peridontal abscess, Post-extraction bleeding, Pulpitis, Tooth avulsion, Tooth eruption, Tooth Fracture, Trigeminal neuralgia, Tooth subluxation, Other Departure Disposition: 01 HOME / SELF CARE / HOMELESS Impression: Primary Impression: Disturbances in tooth eruption Additional Impression: Dentalgia Condition: Stable Discharge Instructions: Dental Pain Referrals: NO PRIMARY CARE PROVIDER (PCP) Prescriptions Naproxen (Naproxen) 500 Mg Tablet 1 TAB PO Q12H, #20 TAB Prov: RADHA PERRY MD 11/07/24 Amox Tr/Potassium Clavulanate (Augmentin 875-125 Tablet) 1 Each Tablet 1 TAB PO Q12H for 14 Days, #28 TAB Prov: RADHA PERRY MD 11/07/24 Hydrocodone Bit/Acetaminophen 5/325 MG ([place] 5/325 MG) 5 Mg/325 Mg Tablet 1-2 TAB PO Q4HPRN PRN for pain for 5 Days, #14 TAB Prov: RADHA PERRY MD 11/07/24 Education Educated: Patient Educated regarding: diagnosis, need for follow up, other Signature Scribe Signature: . Attestation: The note accurately reflects work and decisions made by me.Radha Perry MD 11/07/24 09:14 RADHA PERRY MD Nov 07, 2024 08:54
[2024-11-07] MEDS ORDERED: NAPR-56 PO (09:05)
[2024-11-07] MEDS ORDERED: HYDR-3965 PO (09:05)
[2024-11-07] MEDS ORDERED: AMOX-117 PO (09:05)
[2024-11-07 09:15] VITALS: RESP 14
[2024-11-07] MEDS: HYDROcodone/acetaminophen 10/325mg tab PO ONE (09:15)
[2024-11-07] MEDS: amox tr/potassium clavulanate 875/125mg TAB PO ONE (09:16)
== END 2024-11-07 09:39 | disposition home or self-care (01) ==
LOC: ER 08:05
DX: K00.6 Disturbances in tooth eruption (principal); K08.89 Other specified disorders of teeth and supporting structures; I10 Essential (primary) hypertension; F20.9 Schizophrenia, unspecified; F15.90 Other stimulant use, unspecified, uncomplicated; Z90.49 Acquired absence of other specified parts of digestive tract; Z88.5 Allergy status to narcotic agent
CPT/HCPCS: 99284

== ENCOUNTER 2025-01-12 23:22 | Emergency (ER) | payer MEDICAID ==
[~2025-01-12] VITALS: Ht 165.1 cm; Wt 75.0 kg
[2025-01-12 23:26] VITALS: TEMP 97.8
--- NOTE | 2025-01-12 23:39 | ELECTROCARDIOGRAPH REPORT ---
[facility] Test Date: 2025-01-12 Test Time: 23:28:53 Pat Name: MAIA VELAZQUEZ Department: EMERGENCY ROOM Room: Gender: F Rn Endoscopy: BRIGHT : 1990 Requested By: LANA DELEON Order Number: [id number] Reading MD: Dr. Christopher De Jesus Measurements Intervals [place] Rate: 112 P: 79 WA: 116 QRS: 76 QRSD: 84 T: 8 QT: 420 QTc: 574 Interpretive Statements Sinus tachycardia Borderline T wave abnormalities Prolonged QT interval Electronically Signed On 01-14-2025 7:41:[address] Christopher De Jesus Please click the below link to view image of tracing.
[2025-01-13 00:04] LABS: CREATININE 0.72 MG/DL (0.40-0.90); TOTAL CARBON DIOXIDE 28.5 MMOL/L (24-32); eCRCL 101 ML/MIN; eGFR > 90 ML/MIN
[2025-01-13 00:17] LABS: PRO BRAIN NATRIURETIC PEPTIDE < 30 PG/ML (0-125)
--- NOTE | 2025-01-13 00:21 | RADIOLOGY REPORT ---
CHEST RADIOGRAPH Indication: CP Technique: Single frontal view of the chest was obtained COMPARISON: CHEST,SINGLE VIEW on DOS: 07/27/21 FINDINGS: Lines and Tubes: None Lungs: Clear Pleura: No effusion. No pneumothorax. Cardiomediastinal contours: Unremarkable Bones: Unremarkable IMPRESSION: 1. No acute disease.
--- NOTE | 2025-01-13 00:25 | Physician Documentation ---
History of Present Illness ~ Chief Complaint: Abdominal Pain Stated Complaint: STOMACH PAINS Time Seen by MD: 23:47 Primary Medical Doctor: no Mode of Arrival: POV, Ambulatory HPI Patient presents to the emergency room for evaluation of abdominal pain. She has had prior splenectomy in cholecystectomy. No prior instances. No nausea or diarrhea. She has had nothing for the pain. Pain woke her up out of sleep this evening. Denies history of reflux. Medication Reconciliation Allergies: Coded Allergies: morphine (Verified Allergy, Mild, 01/12/25) Scheduled Nitrofurantoin Monohyd/M-Cryst (Macrobid 100 mg Capsule), 1 CAP PO Q12H Olanzapine (Olanzapine), 1 TAB PO BID Scheduled PRN Trazodone HCl (Trazodone HCl), 50 MG PO HS PRN for Sleep Past Medical History Past Medical History: Hypertension, Liver Failure, *HEMATOLOGY*, Renal Disease, UTI, *INFECTIOUS DZ*, Schizophrenia Past Surgical History: abdominal surgery, cholecystectomy Other Past Surgical History: splenectomy Alcohol Use: Sober Drug Use: methamphetamine, cocaine Lives with: Family Lives In: Home Occupation: employed Review of Systems ROS All review of systems negative except as per HPI Physical Exam Vital Signs: Temperature: 97.8, Source: Oral, Heart Rate: 106, Respiratory Rate: 16, BP: 136/86, Pulse Oximetry: 99, Weight: 75.000 General Appearance General: Patient is awake, alert, oriented x4 in no acute distress Head: Normocephalic and atraumatic. Eyes: Conjunctival normal. EOMI. PERRL. ENT: Mucous membranes moist. Neck: Supple, trachea is midline. Chest: Clear to auscultation bilaterally without rales, rhonchi, or wheezes. There is no accessory muscle use or retractions. Cardiac: RRR without murmurs, gallops, or rubs. Abd: Soft, nondistended, epigastric tenderness to palpation without peritonitis Progress Progress Note Upon re-evaluation patient is sleeping comfortably Results/Orders Results/Orders Orders - KEVIN COELLO MD Chest,Single View (01/12/25 23:38) Monitor (01/12/25 23:38) Saline Lock (01/12/25 23:38) Oxygen (01/12/25 23:38) Hs Troponin I W Calculations (01/13/25 02:38) Completed Orders - KEVIN COELLO MD Chest,Single View (01/12/25 23:38) Cbc/Diff (01/12/25 23:38) PBNP (01/12/25 23:38) Electrocardiogram (01/12/25:38) Hs Troponin I W Calculations (01/12/25 23:38) Hs Troponin I W Calculations (01/13/25 01:38) Urinalysis, Cult If Indicated (01/12/25:38) Hcg, Ur Ql (01/12/25:38) Lipase (01/12/25 23:38) CMP (01/12/25 23:38) Ketorolac Trometh 15mg/Ml Vial (Toradol (01/13/25 00:25) Acetaminophen 1,000mg/100ml Iv (Ofirmev (01/13/25 00:25) Famotidine/Pf Iv Inj (Pepcid Iv Inj) (01/13/25 00:25) Mag & Alum Hydrox/Simeth Susp (Maalox Or (01/13/25:25) Lidocaine 2% Viscous (Xylocaine 2% Visco (01/13/25 00:25) Medications Received in ER Medications (Trade) Dose Ordered Sig/Power Route PRN Reason Start Time Stop Time Status Last Admin Dose Admin (Toradol injection) 15 mg ONCE ONCE IV 01/13/25 00:25 01/13/25 00:26 DC 01/13/25 00:51 15 MG Acetaminophen 100 ml @ 400 mls/hr ONCE ONCE IV 01/13/25 00:25 01/13/25 00:39 DC 01/13/25 00:51 400 MLS/HR (Pepcid IV inj) 20 mg ONCE ONCE IV 01/13/25 00:25 01/13/25 00:26 DC 01/13/25 00:51 20 MG (Maalox oral suspension) 30 ml ONCE ONCE PO 01/13/25 00:25 01/13/25 00:26 DC 01/13/25 00:50 30 ML (Xylocaine 2% Viscous 15mL cup) 15 ml ONCE ONCE MM 01/13/25 00:25 01/13/25 00:26 DC 01/13/25 00:50 15 ML Vital Signs 01/12/25 01/13/25 01/13/25 01/13/25 23:26 00:00 00:51 02:04 Temp 97.8 Pulse 106 78 Resp 20 16 16 16 B/P (MAP) 136/86 92/68 (76) Pulse Ox 99 98 O2 Flow Rate 0 Laboratory Tests Test 01/12/25 23:42 01/13/25 01:32 01/13/25 01:50 White Blood Count 14.8 H Red Blood Count 2.53 L Hemoglobin 8.9 L Hematocrit 24.3 L Mean Corpuscular Volume 95.8 Mean Corpuscular Hemoglobin 35.2 H Mean Corpuscular Hemoglobin Concent 36.8 H Red Cell Distribution Width 13.6 Platelet Count 610 H Mean Platelet Volume 7.6 Neutrophils (%) (Auto) 56.0 Lymphocytes (%) (Auto) 30.9 Monocytes (%) (Auto) 9.9 Eosinophils (%) (Auto) 2.6 Basophils (%) (Auto) 0.6 Neutrophils # (Auto) 8.3 H Lymphocytes # (Auto) 4.6 Monocytes # (Auto) 1.5 H Eosinophils # (Auto) 0.4 Basophils # (Auto) 0.1 CBC Comment Platelet Estimate Increased Large Platelets Few Giant Platelets Few Red Blood Cell Morphology Perf Hypochromasia 1+ Basophilic Stippling Macrocytosis 1+ Stomatocytes 1+ Elliptocytes Few Sodium Level 141 Potassium Level 3.6 Chloride Level 103 Carbon Dioxide Level 28.5 Anion Gap 10 Blood Urea Nitrogen 12 Creatinine 0.72 Estimated GFR/1.73 m2 > 90 BUN/Creatinine Ratio 16.7 Glucose Level 129 H Calcium Level 8.8 Total Bilirubin 1.1 H Aspartate Amino Transf (AST/SGOT) 16 Alanine Aminotransferase (ALT/SGPT) 16 Alkaline Phosphatase 90 Troponin I High Sensitivity 4 < 4 L Pro-B-Type Natriuretic Peptide < 30 Total Protein 8.0 Albumin 3.5 Globulin 4.5 H Albumin/Globulin Ratio 0.8 L Lipase 41 Chemistry Comments Troponin I High Sens Percent Delta Troponin I Hi Sens Absolute Change Urine Specimen Description Non-specified Urine Color Yellow Urine Clarity Clear Urine pH 6.0 Urine Specific [place] 1.025 Urine Protein Negative Urine Glucose (UA) Negative Urine Ketones Negative Urine Occult Blood Negative Urine Nitrite Negative Urine Bilirubin Negative Urine Urobilinogen 1.0 Urine Leukocyte Esterase Negative Urine Culture Indicated Not ind Volume Urine Centrifuged 10 ml Urine HCG, Qualitative Negative Urine Comment Medical Decision Making Additional information obtaine: old records Findings Patient presents to the emergency room for evaluation of abdominal pain. Differentials include but are not limited to ovarian pathology intra-abdominal infection, obstruction, pancreatitis therefore emergent labs ordered. Noted elevation of white blood cell count. Liver enzymes in renal function is reassuring. Patient is feeling much better. Discussed the risks benefits and alternatives of CT scan and as patient states she is feeling much better we have utilized shared decision-making and conservative management with strict ER precautions discussed regarding fevers or worsening of symptoms. At this juncture we feel radiation exposure outweighs the benefit. Patient has no adnexal pain he had not feel she is suffering from ovarian pathology. Diff Dx GI Bleed:Consideration: Include: Blood loss anemia Diff Dx Pain:Considerations: Include: -Missed Diff Dx N/V/D:Considerations: Include: Diarrhea - viral Diff Dx Rectal:Considerations: Include: Foreign body Departure Disposition: HOME / SELF CARE / HOMELESS Impression: Primary Impression: Abdominal pain Condition: Improved Discharge Instructions: Abdominal Pain, Women Referrals: NO PRIMARY CARE PROVIDER (PCP) Signature Scribe Signature: No scribe Attestation: The note accurately reflects work and decisions made by me.Kevin Coello MD 01/13/25 02:53 KEVIN COELLO MD Jan 13, 2025 00:25
[2025-01-13] MEDS: LIDOcaine 2% Viscous 15ml cup MM ONE (00:50)
[2025-01-13] MEDS: mag hydrox/Alum hydrox/simeth 30ml oral suspension PO ONE (00:50)
[2025-01-13] MEDS: famotidine/PF 10 mg/ml inj IV ONE (00:51)
[2025-01-13] MEDS: acetaminophen 1,000mg/100ml IV 100 ML IV ONE (00:51)
[2025-01-13] MEDS: ketorolac trometh 15mg/ml vial 15 MG/ML ML IV ONE (00:51)
[2025-01-13 01:19] LABS: MEAN PLATELET VOLUME 7.6 FL (7.4-10.4)
[2025-01-13 01:22] LABS: RED CELL DISTRIBUTION WIDTH 13.6 % (11.5-14.5)
[2025-01-13 02:02] LABS: URINE HCG NEGATIVE (NEG)
[2025-01-13 02:23] LABS: PLATELET ESTIMATE INCREASED
[2025-01-13 02:24] LABS: ELLIPTOCYTES FEW; GIANT PLATELET FEW; LARGE PLATELETS FEW
[2025-01-13 02:36] LABS: LEUKOCYTE ESTERASE ,URINE NEGATIVE (Neg); NITRITES, URINE NEGATIVE (Neg); OCCULT BLOOD,URINE NEGATIVE (Neg); UA COLLECTION TYPE NON-SPECIFIED
[2025-01-13 03:06] VITALS: BP 97/73; PULSE 89; RESP 16; O2SAT 99
== END 2025-01-13 03:08 | disposition home or self-care (01) ==
LOC: ER 23:22
DX: R10.816 Epigastric abdominal tenderness (principal); R06.02 Shortness of breath; I10 Essential (primary) hypertension; F20.9 Schizophrenia, unspecified; F15.90 Other stimulant use, unspecified, uncomplicated; F10.90 Alcohol use, unspecified, uncomplicated; Z88.5 Allergy status to narcotic agent; Z90.49 Acquired absence of other specified parts of digestive tract; Z90.81 Acquired absence of spleen; Y90.9 Presence of alcohol in blood, level not specified
CPT/HCPCS: 36415; 71045; 80053; 81003; 81025; 83690; 83880; 84484; 85008; 85025; 93005; 96365; 96375; 99285; J0131; J1885; J3490

== ENCOUNTER 2025-02-12 09:37 | Emergency (ER) | payer MEDICAID ==
[~2025-02-12] VITALS: Ht 167.6 cm; Wt 88.2 kg
[2025-02-12 09:44] VITALS: BP 121/91; PULSE 133; RESP 18; TEMP 98.6; O2SAT 98
--- NOTE | 2025-02-12 10:04 | Physician Documentation ---
HPI ~ General Chief Complaint: Tooth Problem Stated Complaint: TOOTH PAIN Time Seen by MD: 09:50 Primary Medical Doctor: no Source: patient Mode of Arrival: POV Exam Limitations: no limitations History of Present Illness HPI Comment 34-year-old female who is here with left lower dental pain which she attributes to her wisdom tooth. She states that it hurts anytime she tries to eat. She was up all night last night due to the pain. She knows that she needs to get the wisdom tooth removed but has been unable to get in to see an oral surgeon. She denies painful or difficulty swallowing, fever, nausea or vomiting. Medication Reconciliation Allergies: Coded Allergies: morphine (Verified Allergy, Mild, 02/12/25) Scheduled Amox Tr/Potassium Clavulanate (Augmentin 875-125 Tablet), 1 TAB PO Q12H Nitrofurantoin Monohyd/M-Cryst (Macrobid 100 mg Capsule), 1 CAP PO Q12H Olanzapine (Olanzapine), 1 TAB PO BID Scheduled PRN Hydrocodone Bit/Acetaminophen (Hydrocodon-Acetaminophn 10-325 tablet), 1 TAB PO TID PRN PRN for pain Trazodone HCl (Trazodone HCl), 50 MG PO HS PRN for Sleep Past Medical History Past Medical History: Hypertension, Liver Failure, *HEMATOLOGY*, Renal Disease, UTI, *INFECTIOUS DZ*, Schizophrenia Past Surgical History: abdominal surgery, cholecystectomy Other Past Surgical History: splenectomy Alcohol Use: Sober Drug Use: methamphetamine, cocaine Lives with: Family Lives In: Home Occupation: employed Review of Systems All Other Systems at this time: Reviewed and Negative Physical Exam Vital Signs: Temperature: 98.6, Source: Oral, Heart Rate: 133, Respiratory Rate: 18, BP: 121/91, Pulse Oximetry: 98, Weight: 88.200 Oxygen Flow Rate: 0 Physical Exam General Appearance: Alert, WD/WN. NAD. HEENT: NCAT, PERRL, EOMI. No facial swelling. LEFT LOWER WISDOM TOOTH PARTIALLY VISIBLE, GINGIVA IS PARTIALLY GROWN OVER TOP OF TOOTH, AREA IS TTP, NO SWELLING. POSTERIOR PHARYNGEAL WALL NORMAL. Neck: Supple, trachea midline. NO CERVICAL LAD. Cardiovascular: RRR. No m/r/g. Lungs: CTAB. Breathing unlabored Extremities: Normal inspection. No edema. Skin: Warm/dry, normal color Neurological: Alert and oriented x4, normal gait. Psychiatric: Affect congruent with mood. Progress Results/Orders Results/Orders Vital Signs 02/12/25 09:44 Temp 98.6 Pulse 133 Resp 18 B/P (MAP) 121/91 Pulse Ox 98 O2 Flow Rate 0 Medical Decision Making Additional information obtaine: N/A Findings N/A Differential Dx:Considerations: Include: Alveolar fracture, Alveolar osteitis, ANUG, Facial Cellulitis, Periapical abscess, Peridontal abscess, Post-extraction bleeding, Pulpitis, Tooth avulsion, Tooth eruption, Tooth Fracture, Trigeminal neuralgia, Tooth subluxation, Other Departure Time of Disposition: 10:04 Disposition: 01 HOME / SELF CARE / HOMELESS Impression: Primary Impression: Acute pericoronitis Condition: Stable Discharge Instructions: Dental Pain, [id number] Additional Instructions: salt water rinses after eating try not to eat on this side of your mouth f/u with dentist to get referral to have this wisdom tooth removed if worsening of symptoms return to ER Referrals: NO PRIMARY CARE PROVIDER (PCP) Prescriptions Hydrocodone Bit/Acetaminophen (Hydrocodon-Acetaminophn 10-325 tablet) 10mg- 325mg Tablet 1 TAB PO TID PRN PRN for pain for 2 Days, #6 TAB dx: pericoronitis k05.2 Prov: HAMILTON RAUSCH 02/12/25 Amox Tr/Potassium Clavulanate (Augmentin 875-125 Tablet) 1 Each Tablet 1 TAB PO Q12H for 10 Days, #20 TAB Prov: HAMILTON RAUSCH 02/12/25 Education Educated: Patient Educated regarding: diagnosis, treatment, need for follow up Signature Scribe Signature: x Attestation: HAMILTON Corcoran Feb 12, 2025 10:04
[2025-02-12] MEDS ORDERED: HYDR-3972 PO (10:05)
[2025-02-12] MEDS ORDERED: AMOX-117 PO (10:05)
== END 2025-02-12 10:17 | disposition home or self-care (01) ==
LOC: ER 09:38
DX: K05.20 Aggressive periodontitis, unspecified (principal); F20.9 Schizophrenia, unspecified; I10 Essential (primary) hypertension; F15.90 Other stimulant use, unspecified, uncomplicated; F14.90 Cocaine use, unspecified, uncomplicated; Z88.5 Allergy status to narcotic agent; Z90.49 Acquired absence of other specified parts of digestive tract; Z90.81 Acquired absence of spleen; Z87.440 Personal history of urinary (tract) infections; Z79.899 Other long term (current) drug therapy
CPT/HCPCS: 99283